=== PATIENT | female | born 1950 | race Caucasian/White ===

== ENCOUNTER 2019-09-06 08:30 | Outpatient (RCR) | payer MEDICARE, SELFPAY | END 2019-09-06 19:30 | disposition home or self-care (01) | LOC: ANHCPREHAB 08:30 | PROVIDERS: PCP Nurse Practitioner Family; Visit Provider Internal Medicine Critical Care Medicine | DX: J44.9 Chronic obstructive pulmonary disease, unspecified (principal) | CPT/HCPCS: 97150; G0424 ==

== ENCOUNTER 2019-10-23 11:11 | Outpatient (CLI) | payer MEDICARE, SELFPAY ==
--- NOTE | 2019-10-24 16:01 | WPDSIXMINUTE ---
Six Minute Walk Six Minute Walk: DOS: 10/23/2019 REQUESTING: Dr Ibarra REASON FOR TESTING : post pulmonary rehab SIX MINUTE WALK The patient wore a mask due to pandemic which caused her to feel more short of breath than normal. The test was performed according to ATS guidelines. The initial saturation was 98% on room air, heart rate 97. The patient walked for 6 minutes stopping twice approximately 30 seconds total completing a distance of 600 ft, 183 meters. Saturation was 93% at the long term berenice. Ending saturation was 95%, pulse was 112. IMPRESSION: No melany hypoxemia. No supplemental oxygen required with exertion. Patient was more short of breath compared to baseline, likely due to wearing a face mask. Distance walked is less than expected for her age. Navya Ibarra MD
== END 2019-10-23 11:12 | disposition home or self-care (01) ==
PROVIDERS: PCP Family Medicine; Visit Provider Internal Medicine Critical Care Medicine
DX: J44.9 Chronic obstructive pulmonary disease, unspecified (principal); R06.02 Shortness of breath
CPT/HCPCS: 94618

== ENCOUNTER 2020-01-05 08:06 | Outpatient (CLI) | payer MEDICARE, SELFPAY ==
[2020-01-05 08:39] LABS: Blood Urea Nitrogen 28 mg/dL (7-17); Carbon Dioxide 27 mmol/L (22-30); Chloride 103 mmol/L (98-107); Estimated Glomerular Filt Rate 49; Glucose 116 mg/dL (65-105); Potassium 4.1 mmol/L (3.4-5.0); Sodium 140 mmol/L (137-145)
== END 2020-01-05 08:07 | disposition home or self-care (01) ==
LOC: ANHLAB 08:07
PROVIDERS: PCP Family Medicine; Visit Provider Internal Medicine Cardiovascular Disease
DX: R60.0 Localized edema (principal)
CPT/HCPCS: 36415; 80048; 83735

== ENCOUNTER 2020-02-08 07:28 | Outpatient (CLI) | payer MEDICARE, SELFPAY ==
[2020-02-08 07:53] LABS: Basophils Percent Auto 0.6 % (0.2-1.2); Eosinophils Absolute Auto 0.2 K/mm3 (0-0.3); Eosinophils Percent Auto 2.2 % (0-4.4); Hematocrit 36.2 % (37.0-47.0); Hemoglobin 11.2 g/dL (12.0-15.0); Immature Granulocyte Absolute 0.02 K/mm3 (0.00-0.031); Immature Granulocyte Percent A 0.3 % (0-0.5); Lymphocytes Absolute Auto 1.44 K/mm3 (0.9-3.2); Lymphocytes Percent Auto 21.5 % (18.3-44.2); Mean Corpuscular HGB Conc 30.9 g/dl (32-36); Mean Corpuscular Hemoglobin 25.6 pg (26-34); Mean Corpuscular Volume 82.6 fl (80-100); Mean Platelet Volume 8.9 fl (7.4-10.4); Monocytes Absolute Auto 0.9 K/mm3 (0.1-0.6); Monocytes Percent Auto 12.7 % (2.6-8.5); Neutrophils Absolute Auto 4.2 K/mm3 (1.3-6.7); Neutrophils Percent Auto 62.7 % (45.5-73.1); Platelet Count Result 417 k/mm3 (150-375); Red Blood Count 4.38 M/mm3 (4.2-5.4); Red Cell Distribution Width 13.9 % (11.5-14.5); White Blood Count 6.7 K/mm3 (4.5-10.0)
[2020-02-08 08:20] LABS: Alanine Aminotransferase 17 U/L (4-35); Albumin Level 4.4 g/dL (3.5-5.1); Alkaline Phosphatase 61 U/L (38-126); Anion Gap 7 mmol/L (8-16); Aspartate Amino Transferase 23 U/L (14-36); Bilirubin,Total 0.3 mg/dL (0.2-1.3); Blood Urea Nitrogen 21 mg/dL (7-17); Calcium 9.6 mg/dL (8.4-10.2); Carbon Dioxide 29 mmol/L (22-30); Chloride 104 mmol/L (98-107); Cholesterol 164 mg/dL (0-200); Estimated Glomerular Filt Rate > 60; Glucose 95 mg/dL (65-105); HDL Direct 48 mg/dL; Sodium 140 mmol/L (137-145); Triglycerides 122 mg/dL (<150)
[2020-02-08 08:31] LABS: LDL Cholesterol Direct 101 mg/dL
== END 2020-02-08 07:29 | disposition home or self-care (01) ==
PROVIDERS: Visit Provider Nurse Practitioner
DX: N91.2 Amenorrhea, unspecified (principal); E55.9 Vitamin D deficiency, unspecified; E78.5 Hyperlipidemia, unspecified; R79.89 Other specified abnormal findings of blood chemistry
CPT/HCPCS: 36415; 80053; 80061; 82306; 85025

== ENCOUNTER 2020-02-29 09:07 | Outpatient (CLI) | payer MEDICARE, SELFPAY ==
--- NOTE | ~2020-02-29 | MM_ITS ---
EXAMINATION: MM screening abhishek BI w yoel HISTORY: Screening TECHNIQUE: Craniocaudal and mediolateral oblique 3-D tomosynthesis images were obtained and synthetic 2-D images were generated. CAD analysis was submitted and interpreted. COMPARISON: No prior mammogram is available for comparison at this institution. BREAST PARENCHYMAL COMPOSITION: The breasts are almost entirely fatty. FINDINGS: There is no evidence of suspicious mass, calcification, or architectural distortion to sugg est malignancy in either breast. There has been no suspicious interval change. IMPRESSION: 1. No mammographic evidence of malignancy. 2. Recommend routine screening mammography in one year. BI-RADS Category 1: Negative Reviewed, dictated and finalized at location A.
== END 2020-02-29 09:08 | disposition home or self-care (01) ==
LOC: ANHIMG 09:09
PROVIDERS: Visit Provider Nurse Practitioner
DX: Z12.31 Encounter for screening mammogram for malignant neoplasm of breast (principal)
CPT/HCPCS: 77063; 77067

== ENCOUNTER 2020-07-22 08:00 | Outpatient (CLI) | payer MEDICARE, SELFPAY ==
[2020-07-22 08:13] LABS: Basophils Percent Auto 0.5 % (0.2-1.2); Eosinophils Absolute Auto 0.1 K/mm3 (0-0.3); Eosinophils Percent Auto 1.8 % (0-4.4); Hematocrit 36.5 % (37.0-47.0); Hemoglobin 11.3 g/dL (12.0-15.0); Immature Granulocyte Absolute 0.02 K/mm3 (0.00-0.031); Immature Granulocyte Percent A 0.3 % (0-0.5); Lymphocytes Absolute Auto 1.55 K/mm3 (0.9-3.2); Lymphocytes Percent Auto 19.6 % (18.3-44.2); Mean Corpuscular Hemoglobin 25.8 pg (26-34); Mean Corpuscular Volume 83.3 fl (80-100); Mean Platelet Volume 8.4 fl (7.4-10.4); Monocytes Absolute Auto 0.8 K/mm3 (0.1-0.6); Monocytes Percent Auto 10.4 % (2.6-8.5); Neutrophils Absolute Auto 5.3 K/mm3 (1.3-6.7); Neutrophils Percent Auto 67.4 % (45.5-73.1); Platelet Count Result 433 k/mm3 (150-375); Red Blood Count 4.38 M/mm3 (4.2-5.4); Red Cell Distribution Width 14.7 % (11.5-14.5); White Blood Count 7.9 K/mm3 (4.5-10.0)
[2020-07-22 08:26] LABS: Alanine Aminotransferase 20 U/L (4-35); Albumin Level 4.3 g/dL (3.5-5.1); Alkaline Phosphatase 54 U/L (38-126); Anion Gap 5 mmol/L (8-16); Aspartate Amino Transferase 29 U/L (14-36); Bilirubin,Total 0.4 mg/dL (0.2-1.3); Blood Urea Nitrogen 22 mg/dL (7-17); Calcium 9.8 mg/dL (8.4-10.2); Carbon Dioxide 31 mmol/L (22-30); Chloride 105 mmol/L (98-107); Cholesterol 169 mg/dL (0-200); Estimated Glomerular Filt Rate > 60; Glucose 107 mg/dL (65-105); HDL Direct 49 mg/dL; Potassium 4.1 mmol/L (3.4-5.0); Sodium 141 mmol/L (137-145); Triglycerides 156 mg/dL (<150)
[2020-07-22 08:37] LABS: LDL Cholesterol Direct 95 mg/dL
[2020-07-22 09:06] LABS: Vitamin D 25 Hydroxy 68.6 ng/mL
== END 2020-07-22 08:01 | disposition home or self-care (01) ==
PROVIDERS: PCP Family Medicine; Visit Provider Nurse Practitioner
DX: I10 Essential (primary) hypertension (principal); E78.5 Hyperlipidemia, unspecified; E55.9 Vitamin D deficiency, unspecified
CPT/HCPCS: 36415; 80053; 80061; 82306; 85025

== ENCOUNTER 2020-08-01 07:32 | Outpatient (CLI) | payer MEDICARE, SELFPAY ==
--- NOTE | 2020-08-01 07:48 | ECHO_ITS ---
Patient Info Name: Fidelina Wells Age: 70 years : 1950 Gender: Female Ht: 66 in Wt: 175 lbs BSA: 1.94 m2 HR: 77 bpm BP: 143 / 84 mmHg Technical Quality: Good Exam Date: 08/01/2020 8:06 AM Exam Location: [facility] Patient Status: Outpatient Admit Date: 08/01/2020 Staff Ordering Physician: Navya Ibarra MD Band Booker: Arturo Guillory RDCS, RT Attending Provider: Navya Ibarra MD Referring Physician: Fred ROACH; Exam Type: CA echo doppler color flow Study Info Indications R06.02 - Shortness of breath Complete two-dimensional, color flow and Doppler transthoracic echocardiogram is performed. Strain analysis performed. Summary 1. Complete two-dimensional, color flow and Doppler transthoracic echocardiogram is performed. 2. Left ventricular chamber dimension is normal. 3. Left ventricular systolic function is normal, estimated at 60-65%. 4. The left ventricular diastolic function is grade I diastolic dysfunction. 5. E/e' 13 is mildly elevated. 6. Global longitudinal strain is normal at -17.2%. 7. Lipomatous interatrial septum. 8. The mitral valve has mildly calcified annulus. 9. Normal inferior vena cava with >50% collapse upon inspiration consistent with elevated right atrial pressure, 10 mmHg. Left Ventricle E/e' 13 is mildly elevated. Global longitudinal strain is normal at -17.2%. Left ventricular chamber dimension is normal. Left ventricular systolic function is normal, estimated at 60-65%. The left ventricular diastolic function is grade I diastolic dysfunction. Right Ventricle Right ventricular chamber dimension is normal. Right ventricular systolic function is normal. Left Atria Left atrial chamber dimension is normal. Right Atria Right atrial chamber dimension is normal. Atrial Septum Lipomatous interatrial septum. Aortic Valve The aortic valve is trileaflet. There is no aortic valve stenosis. There is no aortic valve regurgitation. Pulmonic Valve There is no pulmonic regurgitation. Mitral Valve The mitral valve has mildly calcified annulus. There is no mitral valve stenosis. There is no mitral valve regurgitation. Tricuspid Valve There is no tricuspid valve regurgitation. Pericardium/Pleural There is no pericardial effusion. Inferior Vena Cava Normal inferior vena cava with >50% collapse upon inspiration consistent with elevated right atrial pressure, 10 mmHg. Aorta The aortic root size at the sinus of Valsalva is normal. Left Ventricular Outflow Tract Name Value Normal LVOT 2D LVOT Diameter 2.1 cm LVOT Doppler LVOT Peak Gradient 4 mmHg LVOT Mean Gradient 2 mmHg LVOT VTI 19 cm LVOT VTI/AV VTI Ratio 0.5 LVOT Stroke Volume 67 ml LVOT CO 5.2 l/min LVOT CI 2.7 l/min/m2 Mitral Valve Name Value Ashely
== END 2020-08-01 07:33 | disposition home or self-care (01) ==
PROVIDERS: PCP Family Medicine; Visit Provider Internal Medicine Critical Care Medicine
DX: R06.02 Shortness of breath (principal)
CPT/HCPCS: 93306

== ENCOUNTER 2020-09-16 07:43 | Outpatient (CLI) | payer MEDICARE, SELFPAY ==
--- NOTE | ~2020-09-16 | DEXA_ITS ---
Bone Density Report Name: Fidelina Wells Age: 70 Sex: Female Ethnicity: White Date of : 1950 Indication: osteopenia; height loss; asthma or emphysema; hysterectomy; Referring Provider: Minnie Ramirez Study: Bone densitometry was performed. Exam Date: September 16, 2020 Accession number: [id number] Bone Density: Region BMD T-score Z-score Classification AP Spine (L1-L4) 0.939 -1.0 1.2 Normal Femoral Neck (Right) 0.683 -1.5 0.4 Osteopenia Total Hip (Right) 0.783 -1.3 0.3 Osteopenia World Health Organization criteria for BMD impression classify patients as: Normal (T-score at or above -1.0), Osteopenia (T-score between -1.0 and -2.5), or Osteoporosis (T-score at or below -2.5). 10-year Fracture Risk(1): Major Osteoporotic Fracture 10% Hip Fracture 1.6% Reported Risk Factors: [place] (), Neck BMD=0.683, BMI=28.3 (1) FRAX(R) Version 3.08. Fracture probability calculated for an untreated patient. Fracture probability may be lower if the patient has received treatment. Previous Exams: Region Exam Age BMD T-score BMD Change BMD Change Date g/cm2 vs Baseline vs Previous AP Spine(L1-L4) 09/16/2020 70 0.939 -1.0 0.010(1.0%) 0.010(1.0%) 08/03/2018 68 0.930 -1.1 Total Hip(Right) 09/16/2020 70 0.783 -1.3 -0.034(-4.2%)* -0.034(-4.2%)* 08/03/2018 68 0.817 -1.0 *Denotes significance at 95% confidence level, LSC for AP Spine = 0.022 g/cm2, LSC for Total Hip = 0.027 g/cm2 Clinical Information Provided by Patient: Has used the following medications: Vitamin D Has the following medical conditions: Asthma or Emphysema, Hysterectomy Patient maximum height was 67 Menopause Age: 47 Drinks caffeinated beverages Onset of menses at age 11 Number of children 1 Impression: The patient has low bone mass, based on the Right Femoral Neck T-score. The patient has an estimated ten-year risk of hip fracture of 1.6% and an estimated ten-year risk of major fracture of 10%, based on the WHO FRAX algorithm. The BMD for the Total Hip(Right) decreased, changing by -4.2% since the last DXA exam. Discussion: BONE DENSITY IS LOW AT ONE OR MORE SKELETAL SITES. This patient's lowest T-score is low at one or more skeletal sites. It meets the World Health Organization's (WHO) criteria for ?low bone mass? (T-score between -1.0 and -2.5). The patient's 10-year risk of fracture as calculated by FRAX is less than the threshold where pharmacological therapy is recommended by the National Osteoporosis Foundation (NOF)
== END 2020-09-16 07:44 | disposition home or self-care (01) ==
LOC: ANHIMG 07:46
PROVIDERS: PCP Family Medicine; Visit Provider Nurse Practitioner
DX: Z78.0 Asymptomatic menopausal state (principal); M85.89 Other specified disorders of bone density and structure, multiple sites
CPT/HCPCS: 77080

== ENCOUNTER 2021-01-24 07:09 | Outpatient (CLI) | payer MEDICARE, SELFPAY ==
[2021-01-24 07:25] LABS: Basophils Absolute Auto 0.1 K/mm3 (0.0-0.1); Basophils Percent Auto 0.7 % (0.2-1.2); Eosinophils Absolute Auto 0.2 K/mm3 (0-0.3); Eosinophils Percent Auto 1.8 % (0-4.4); Hematocrit 35.9 % (37.0-47.0); Hemoglobin 10.3 g/dL (12.0-15.0); Immature Granulocyte Absolute 0.04 K/mm3 (0.00-0.031); Immature Granulocyte Percent A 0.5 % (0-0.5); Lymphocytes Absolute Auto 1.67 K/mm3 (0.9-3.2); Mean Corpuscular HGB Conc 28.7 g/dl (32-36); Mean Corpuscular Hemoglobin 23.2 pg (26-34); Mean Corpuscular Volume 80.9 fl (80-100); Mean Platelet Volume 8.7 fl (7.4-10.4); Monocytes Percent Auto 11.9 % (2.6-8.5); Neutrophils Absolute Auto 5.4 K/mm3 (1.3-6.7); Neutrophils Percent Auto 65.1 % (45.5-73.1); Platelet Count Result 457 k/mm3 (150-375); Red Blood Count 4.44 M/mm3 (4.2-5.4); Red Cell Distribution Width 14.9 % (11.5-14.5); White Blood Count 8.3 K/mm3 (4.5-10.0)
[2021-01-24 07:48] LABS: Alanine Aminotransferase 19 U/L (4-35); Albumin Level 4.4 g/dL (3.5-5.1); Alkaline Phosphatase 60 U/L (38-126); Anion Gap 7 mmol/L (8-16); Aspartate Amino Transferase 31 U/L (14-36); Bilirubin,Total 0.4 mg/dL (0.2-1.3); Blood Urea Nitrogen 17 mg/dL (7-17); Calcium 10.1 mg/dL (8.4-10.2); Carbon Dioxide 29 mmol/L (22-30); Chloride 106 mmol/L (98-107); Cholesterol 183 mg/dL (0-200); Estimated Glomerular Filt Rate > 60; Glucose 107 mg/dL (65-110); HDL Direct 53 mg/dL; Sodium 142 mmol/L (137-145); Triglycerides 173 mg/dL (<150)
[2021-01-24 07:59] LABS: LDL Cholesterol Direct 84 mg/dL
[2021-01-24 08:43] LABS: Hypochromasia 2+ (NORMAL); Platelet Estimate Adequate (Adequate)
== END 2021-01-24 07:10 | disposition home or self-care (01) ==
LOC: ANHLAB 07:11
PROVIDERS: PCP Family Medicine; Visit Provider Nurse Practitioner
DX: I10 Essential (primary) hypertension (principal); E78.5 Hyperlipidemia, unspecified
CPT/HCPCS: 36415; 80053; 80061; 85025

== ENCOUNTER 2021-09-02 07:13 | Outpatient (CLI) | payer MEDICARE, SELFPAY ==
[2021-09-02 07:31] LABS: Basophils Percent Auto 0.4 % (0.2-1.2); Eosinophils Absolute Auto 0.1 K/mm3 (0-0.3); Eosinophils Percent Auto 1.3 % (0-4.4); Hematocrit 33.4 % (37.0-47.0); Hemoglobin 9.3 g/dL (12.0-15.0); Immature Granulocyte Absolute 0.03 K/mm3 (0.00-0.031); Immature Granulocyte Percent A 0.4 % (0-0.5); Lymphocytes Absolute Auto 1.53 K/mm3 (0.9-3.2); Lymphocytes Percent Auto 18.4 % (18.3-44.2); Mean Corpuscular HGB Conc 27.8 g/dl (32-36); Mean Corpuscular Hemoglobin 22.3 pg (26-34); Mean Corpuscular Volume 80.1 fl (80-100); Mean Platelet Volume 8.3 fl (7.4-10.4); Monocytes Percent Auto 11.4 % (2.6-8.5); Neutrophils Absolute Auto 5.7 K/mm3 (1.3-6.7); Neutrophils Percent Auto 68.1 % (45.5-73.1); Platelet Count Result 468 k/mm3 (150-375); Red Blood Count 4.17 M/mm3 (4.2-5.4); Red Cell Distribution Width 15.3 % (11.5-14.5); White Blood Count 8.3 K/mm3 (4.5-10.0)
[2021-09-02 07:53] LABS: LDL Cholesterol Direct 100 mg/dL
[2021-09-02 08:14] LABS: Platelet Estimate Adequate (Adequate)
[2021-09-02 08:15] LABS: Anisocytosis 1+ (NORMAL); Hypochromasia 2+ (NORMAL); Stomatocytes 1+ (NORMAL)
[2021-09-02 09:44] LABS: Alanine Aminotransferase 17 U/L (4-35); Albumin Level 4.4 g/dL (3.5-5.1); Alkaline Phosphatase 68 U/L (38-126); Anion Gap 6 mmol/L (8-16); Aspartate Amino Transferase 42 U/L (14-36); Bilirubin,Total 0.3 mg/dL (0.2-1.3); Blood Urea Nitrogen 18 mg/dL (7-17); Calcium 9.8 mg/dL (8.4-10.2); Carbon Dioxide 32 mmol/L (22-30); Chloride 104 mmol/L (98-107); Cholesterol 190 mg/dL (0-200); Estimated Glomerular Filt Rate > 60; Glucose 115 mg/dL (65-110); HDL Direct 46 mg/dL; Potassium 4.1 mmol/L (3.4-5.0); Sodium 142 mmol/L (137-145); Triglycerides 183 mg/dL (<150)
[2021-09-03 17:00] LABS: Hemoglobin A1C 5.2 % (<5.7)
[2021-09-03 17:36] LABS: Folic Acid > 20.0 ng/mL (2.76->20); Vitamin B12 > 1000.0 pg/mL (239-931)
== END 2021-09-02 07:14 | disposition home or self-care (01) ==
PROVIDERS: PCP Family Medicine; Visit Provider Nurse Practitioner
DX: E78.5 Hyperlipidemia, unspecified (principal); I10 Essential (primary) hypertension; D50.0 Iron deficiency anemia secondary to blood loss (chronic); R73.9 Hyperglycemia, unspecified
CPT/HCPCS: 36415; 80053; 80061; 82607; 82746; 83036; 85025

== ENCOUNTER 2021-10-06 07:09 | Outpatient (CLI) | payer MEDICARE, SELFPAY ==
[2021-10-06 07:58] LABS: Basophils Absolute Auto 0.1 K/mm3 (0.0-0.1); Basophils Percent Auto 0.7 % (0.2-1.2); Eosinophils Absolute Auto 0.2 K/mm3 (0-0.3); Eosinophils Percent Auto 2.5 % (0-4.4); Hematocrit 38.1 % (37.0-47.0); Hemoglobin 10.7 g/dL (12.0-15.0); Immature Granulocyte Absolute 0.03 K/mm3 (0.00-0.031); Immature Granulocyte Percent A 0.4 % (0-0.5); Lymphocytes Percent Auto 18.3 % (18.3-44.2); Mean Corpuscular HGB Conc 28.1 g/dl (32-36); Mean Corpuscular Hemoglobin 22.8 pg (26-34); Mean Corpuscular Volume 81.1 fl (80-100); Mean Platelet Volume 8.9 fl (7.4-10.4); Monocytes Absolute Auto 0.9 K/mm3 (0.1-0.6); Monocytes Percent Auto 11.9 % (2.6-8.5); Neutrophils Absolute Auto 4.7 K/mm3 (1.3-6.7); Neutrophils Percent Auto 66.2 % (45.5-73.1); Platelet Count Result 367 k/mm3 (150-375); Red Cell Distribution Width 17.3 % (11.5-14.5); White Blood Count 7.1 K/mm3 (4.5-10.0)
[2021-10-06 08:13] LABS: Iron 36 ug/dL (37-170)
[2021-10-06 08:41] LABS: Percent Iron Saturation 9 % (20-50)
== END 2021-10-06 07:10 | disposition home or self-care (01) ==
PROVIDERS: PCP Family Medicine; Visit Provider Family Medicine
DX: D64.9 Anemia, unspecified (principal)
CPT/HCPCS: 36415; 82728; 83540; 83550; 85025

== ENCOUNTER 2021-10-09 07:19 | Outpatient (CLI) | payer MEDICARE, SELFPAY ==
[2021-10-09 08:40] LABS: IFOB Positive Control Positive; Immunochemical Fecal Occult Bl Positive (N)
== END 2021-10-09 07:20 | disposition home or self-care (01) ==
PROVIDERS: PCP Family Medicine; Visit Provider Family Medicine
DX: D64.9 Anemia, unspecified (principal)
CPT/HCPCS: 82274

== ENCOUNTER 2021-11-28 01:53 | Day surgery (SDC) | payer MEDICARE, SELFPAY ==
[2021-11-11 13:55] VITALS: BMI 28.8
[2021-11-28 10:05] VITALS: BP 170/84; PULSE 84; RESP 18; TEMP 36.7; O2SAT 94; BMI 29.2
[2021-11-28] MEDS: LACTATED RINGERS 1,000 ML 150 ML IV CONT (10:24)
--- NOTE | 2021-11-28 10:46 | WPDANESEPPF ---
Anes - Initial Pre Proc Eval Procedure: Operation Date: 11/28/21 11:00 Proposed Procedures p Esophagogastroduodenoscopy & Colonoscopy - Michael Voss MD Date/Time: 11/28/21 10:46 Surgeon: Michael Voss MD Pre Op Diagnosis: positive hemoccult, DUNG Patient Data Age: 71 Gender: F Height: 1.68 m Weight: 82 kg Last Vital Signs Temp 98.0 F 11/28/21 10:05 Pulse 84 11/28/21 10:05 Resp 18 11/28/21 10:05 BP 170/84 H 11/28/21 10:05 Pulse Ox 94 11/28/21 10:05 O2 Del Method Room Air 11/28/21 10:05 Allergies Allergy/AdvReac Type Severity Reaction Status Date / Time lisinopril Allergy Unknown Unknown Verified 11/28/21 10:04 nabumetone Allergy Unknown Unknown Verified 11/28/21 10:04 Sulfa (Sulfonamide Allergy Unknown Unknown Verified 11/28/21 10:04 Antibiotics) Home Medications Medication Instructions Recorded Confirmed Type cholecalciferol (vitamin D3) 50 1 unit PO DAILY 06/15/19 11/28/21 History mcg (2,000 unit) tablet multivit with 1 tablet PO DAILY 06/15/19 11/28/21 History kcqcbodx-pmtq-UF-lutein 8 mg iron-400 mcg-300 mcg tablet (Centrum Silver Women) comp.stocking,knee,long,medium #7 ea 06/28/20 11/10/21 Rx fluticasone fur. 100 mcg-umeclid 1 inh inhalation Q24H #60 ea 01/28/21 11/28/21 Rx 62.5 mcg-vilant 25 mcg inhalat.powder (Trelegy Ellipta) albuterol sulfate 90 mcg/actuation See Rx Instructions .Route 08/11/21 11/28/21 Rx aerosol inhaler .COMPLEX #18 grams amlodipine 10 mg tablet See Rx Instructions .Route 08/11/21 11/28/21 Rx .COMPLEX #90 tabs pravastatin 10 mg tablet See Rx Instructions .Route 08/11/21 11/28/21 Rx .COMPLEX #90 tabs spironolactone 25 mg tablet See Rx Instructions .Route 08/11/21 11/28/21 Rx .COMPLEX #30 tabs ferrous sulfate 324 mg (65 mg 324 mg PO BID #180 tabs 10/06/21 11/28/21 Rx iron) tablet,delayed release Patient hx anesthesia problems: none Family hx anesthesia problems: none Results Review: All pre-operative results and documents have been reviewed as part of the pre-operative evaluation. PENDING SALE TO [facility] Past Medical History Medical History (Updated 11/10/21 @ 09:48 by DAVID Fernandez) COPD (chronic obstructive pulmonary disease) Essential (primary) hypertension Family history of colon cancer in mother Gastric ulcer History of tobacco abuse Hyperlipidemia Iron deficiency anemia Lower extremity edema Overweight (BMI 25.0-29.9) Vitamin D deficiency Surgical History Surgical History History of cataract extraction 2015, 2018 History of hysterectomy (~1984) History of left hip replacement (~2007) History of lumbar discectomy (~1989) History of tonsillectomy (~1955) Family History Family History Father Family history of cardiovascular disease Patient's father is , Onset Age: 54 Cancer of spine Mother Family history of cardiovascular disease Family history of osteoporosis Patient's mother is , Onset Age: 91 Breast cancer Colon cancer CHF (congestive heart failure) Sibling Cerebrovascular accident Social History Social History Smoking packs per day: 0.5 Smoking cigarettes per day: 10.0 Years smoked: 2 Smoking pack-years: 1.00 Smoking status: Never smoker Tobacco type: cigarettes Second hand tobacco smoke exposure: Yes Smoking end date: 06/21/70 Alcohol intake: current Alcohol use details: Occasional small glass of wine Substance use: never Substance use type: does not use Living arrangements: with family Gender identity (if verbalized by the patient): Female Spiritual care concerns: No Anes - Eval Final PreProcedure Day of Procedure 11/28/21 10:46 Patient weight: obese Heart: regular rate and rhythm Lungs: clear to auscultation
--- NOTE | 2021-11-28 10:48 | PM.HPGS ---
History of Present Illness History of Present Illness Consent: Risks, benefits, and alternatives have been discussed and questions answered. Patient agrees to proceed with procedure. Chief complaint: positive hemoccult, DUNG Narrative: Fidelina Wells is a 71 year old female wiht recurrent DUNG, 2019 egd showed ulcerative gastritis but she is not longer using ppi, colonoscopy only diverticulosis. Repeat FOBT positive but she denies overt gib. Review of Systems Constitutional: Constitutional: Denies headache(s) and Denies weakness Eyes: Eyes: Denies blurry vision ENT: Reports Normal hearing present, Denies headache(s) and Denies neck pain Cardiovascular: Cardiovascular: Denies chest pain and Denies dyspnea Respiratory: Respiratory: Denies dyspnea Gastrointestinal: Gastrointestinal: Reports no additional gastrointestinal complaints Genitourinary: Genitourinary: Denies dysuria Musculoskeletal: Musculoskeletal: Denies neck pain Integumentary/Breasts: Skin/Breast: Denies dry skin Neurologic: Reports Normal hearing present, Denies headache(s) and Denies weakness Psychiatric: Psychiatric: Denies anxiety Endocrine: Endocrine: Denies change in body appearance Hematologic/Lymphatic: Hematologic/Lymphatic: Denies easy bleeding Allergic/Immunologic: Allergic/Immunologic: Denies urticaria [facility] Past Medical History Medical History (Updated 11/10/21 @ 09:48 by DAVID Fernandez) COPD (chronic obstructive pulmonary disease) Essential (primary) hypertension Family history of colon cancer in mother Gastric ulcer History of tobacco abuse Hyperlipidemia Iron deficiency anemia Lower extremity edema Overweight (BMI 25.0-29.9) Vitamin D deficiency Surgical History Surgical History History of cataract extraction 2015, 2018 History of hysterectomy (~1984) History of left hip replacement (~2007) History of lumbar discectomy (~1989) History of tonsillectomy (~1955) Family History Family History Father Family history of cardiovascular disease Patient's father is , Onset Age: 54 Cancer of spine Mother Family history of cardiovascular disease Family history of osteoporosis Patient's mother is , Onset Age: 91 Breast cancer Colon cancer CHF (congestive heart failure) Sibling Cerebrovascular accident Social History Social History Smoking packs per day: 0.5 Smoking cigarettes per day: 10.0 Years smoked: 2 Smoking pack-years: 1.00 Smoking status: Never smoker Tobacco type: cigarettes Second hand tobacco smoke exposure: Yes Smoking end date: 06/21/70 Alcohol intake: current Alcohol use details: Occasional small glass of wine Substance use: never Substance use type: does not use Living arrangements: with family Gender identity (if verbalized by the patient): Female Spiritual care concerns: No Meds Home Medications and Allergies Home Medications Medication Instructions Recorded Confirmed Type cholecalciferol (vitamin D3) 50 1 unit PO DAILY 06/15/19 11/28/21 History mcg (2,000 unit) tablet multivit with 1 tablet PO DAILY 06/15/19 11/28/21 History xzxobtyc-efum-LX-lutein 8 mg iron-400 mcg-300 mcg tablet (Centrum Silver Women) comp.stocking,knee,long,medium #7 ea 06/28/20 11/10/21 Rx fluticasone fur. 100 mcg-umeclid 1 inh inhalation Q24H #60 ea 01/28/21 11/28/21 Rx 62.5 mcg-vilant 25 mcg inhalat.powder (Trelegy Ellipta) albuterol sulfate 90 mcg/actuation See Rx Instructions .Route 08/11/21 11/28/21 Rx aerosol inhaler .COMPLEX #18 grams amlodipine 10 mg tablet See Rx Instructions .Route 08/11/21 11/28/21 Rx .COMPLEX #90 tabs pravastatin 10 mg tablet See Rx Instructions .Route 08/11/21 11/28/21 Rx .COMPLEX #90 tabs spironolactone 25 mg tablet See Rx
[2021-11-28] MEDS: BENZOCAINE (*SP) 60 ML SPRAY CAN (HURRICAINE) 1 SPRAY MUCOUS MEM (10:57)
[2021-11-28 11:19] VITALS: BP 135/79; PULSE 79; RESP 21; O2SAT 100
[2021-11-28 11:29] VITALS: BP 135/79; PULSE 82; RESP 17; O2SAT 98
--- NOTE | 2021-11-28 11:32 | SUR.OPER ---
EGD start 1055 end 1059, Colonoscopy start 1104 end 1115.
[2021-11-28 11:39] VITALS: BP 141/89; PULSE 79; RESP 18; O2SAT 99
== END 2021-11-28 11:54 | disposition home or self-care (01) ==
PROVIDERS: PCP Family Medicine; Visit Provider Internal Medicine Gastroenterology
PROC: 0DJ08ZZ Inspection of Upper Intestinal Tract, Via Natural or Artificial Opening Endoscopic (ICD-10-PCS; CPT 43235; principal; 2021-11-28 11:00)
DX: D50.9 Iron deficiency anemia, unspecified (principal); D12.2 Benign neoplasm of ascending colon; D12.0 Benign neoplasm of cecum; Z80.0 Family history of malignant neoplasm of digestive organs; R19.5 Other fecal abnormalities; K57.30 Diverticulosis of large intestine without perforation or abscess without bleeding; K64.8 Other hemorrhoids; K21.00 Gastro-esophageal reflux disease with esophagitis, without bleeding; K44.9 Diaphragmatic hernia without obstruction or gangrene; K29.50 Unspecified chronic gastritis without bleeding; E55.9 Vitamin D deficiency, unspecified; E78.5 Hyperlipidemia, unspecified; I10 Essential (primary) hypertension; J44.9 Chronic obstructive pulmonary disease, unspecified; Z79.51 Long term (current) use of inhaled steroids
CPT/HCPCS: 45385; 45380; 43239; 88305; J2704; J7120

== ENCOUNTER 2022-01-15 08:07 | Outpatient (CLI) | payer MEDICARE, SELFPAY ==
[2022-01-15 19:41] LABS: Alanine Aminotransferase 21 U/L (6-35); Albumin Level 4.7 g/dL (3.5-5.1); Alkaline Phosphatase 89 U/L (38-126); Anion Gap 10 mmol/L (8-16); Aspartate Amino Transferase 34 U/L (14-36); Bilirubin,Total 0.6 mg/dL (0.2-1.3); Blood Urea Nitrogen 21 mg/dL (7-17); Calcium 10.5 mg/dL (8.4-10.2); Carbon Dioxide 32 mmol/L (22-30); Chloride 103 mmol/L (98-107); Cholesterol 192 mg/dL (0-200); Estimated Glomerular Filt Rate > 60; Glucose 99 mg/dL (65-110); HDL Direct 40 mg/dL; Sodium 145 mmol/L (137-145); Triglycerides 254 mg/dL (<150)
[2022-01-15 19:51] LABS: Basophils Absolute Auto 0.1 K/mm3 (0.0-0.1); Basophils Percent Auto 0.6 % (0.2-1.2); Eosinophils Absolute Auto 0.2 K/mm3 (0-0.3); Eosinophils Percent Auto 1.9 % (0-4.4); Hematocrit 45.1 % (37.0-47.0); Hemoglobin 14.4 g/dL (12.0-15.0); Immature Granulocyte Absolute 0.03 K/mm3 (0.00-0.031); Immature Granulocyte Percent A 0.4 % (0-0.5); Lymphocytes Absolute Auto 1.79 K/mm3 (0.9-3.2); Lymphocytes Percent Auto 22.6 % (18.3-44.2); Mean Corpuscular HGB Conc 31.9 g/dl (32-36); Mean Corpuscular Hemoglobin 29.2 pg (26-34); Mean Corpuscular Volume 91.5 fl (80-100); Mean Platelet Volume 9.9 fl (7.4-10.4); Monocytes Percent Auto 12.3 % (2.6-8.5); Neutrophils Absolute Auto 4.9 K/mm3 (1.3-6.7); Neutrophils Percent Auto 62.2 % (45.5-73.1); Platelet Count Result 377 k/mm3 (150-375); Red Blood Count 4.93 M/mm3 (4.2-5.4); Red Cell Distribution Width 14.2 % (11.5-14.5); White Blood Count 7.9 K/mm3 (4.5-10.0)
[2022-01-15 19:52] LABS: LDL Cholesterol Direct 107 mg/dL
[2022-01-15 21:56] LABS: Iron 108 ug/dL (37-170)
[2022-01-15 22:10] LABS: Vitamin D 25 Hydroxy 75.4 ng/mL
[2022-01-15 22:11] LABS: Percent Iron Saturation 30 % (20-50)
== END 2022-01-15 08:08 | disposition home or self-care (01) ==
LOC: ANHGOSHLAB 08:11
PROVIDERS: PCP Family Medicine; Visit Provider Nurse Practitioner
DX: D64.9 Anemia, unspecified (principal); I10 Essential (primary) hypertension; R53.83 Other fatigue; E78.5 Hyperlipidemia, unspecified; E55.9 Vitamin D deficiency, unspecified
CPT/HCPCS: 36415; 80053; 80061; 82306; 82728; 83540; 83550; 84443; 85025

== ENCOUNTER 2022-08-14 08:15 | Outpatient (CLI) | payer MEDICARE, SELFPAY ==
[2022-08-14 18:35] LABS: Basophils Percent Auto 0.4 % (0.2-1.2); Eosinophils Absolute Auto 0.1 K/mm3 (0-0.3); Eosinophils Percent Auto 1.6 % (0-4.4); Hematocrit 43.1 % (37.0-47.0); Hemoglobin 14.1 g/dL (12.0-15.0); Immature Granulocyte Absolute 0.03 K/mm3 (0.00-0.031); Immature Granulocyte Percent A 0.4 % (0-0.5); Lymphocytes Absolute Auto 1.58 K/mm3 (0.9-3.2); Lymphocytes Percent Auto 20.5 % (18.3-44.2); Mean Corpuscular HGB Conc 32.7 g/dl (32-36); Mean Corpuscular Hemoglobin 31.2 pg (26-34); Mean Corpuscular Volume 95.4 fl (80-100); Mean Platelet Volume 9.9 fl (7.4-10.4); Monocytes Absolute Auto 0.8 K/mm3 (0.1-0.6); Monocytes Percent Auto 10.8 % (2.6-8.5); Neutrophils Absolute Auto 5.1 K/mm3 (1.3-6.7); Neutrophils Percent Auto 66.3 % (45.5-73.1); Platelet Count Result 364 k/mm3 (150-375); Red Blood Count 4.52 M/mm3 (4.2-5.4); White Blood Count 7.7 K/mm3 (4.5-10.0)
[2022-08-14 18:54] LABS: Alanine Aminotransferase 23 U/L (6-35); Albumin Level 4.6 g/dL (3.5-5.1); Alkaline Phosphatase 74 U/L (38-126); Anion Gap 7 mmol/L (8-16); Aspartate Amino Transferase 30 U/L (14-36); Bilirubin,Total 0.6 mg/dL (0.2-1.3); Blood Urea Nitrogen 18 mg/dL (7-17); Calcium 9.4 mg/dL (8.4-10.2); Carbon Dioxide 29 mmol/L (22-30); Chloride 108 mmol/L (98-107); Cholesterol 164 mg/dL (0-200); Estimated Glomerular Filt Rate > 60; Glucose 89 mg/dL (65-110); HDL Direct 34 mg/dL; Potassium 4.3 mmol/L (3.4-5.0); Sodium 144 mmol/L (137-145); Triglycerides 290 mg/dL (<150)
[2022-08-14 19:05] LABS: LDL Cholesterol Direct 81 mg/dL
[2022-08-14 19:48] LABS: Iron 95 ug/dL (37-170); Percent Iron Saturation 30 % (20-50); Vitamin D 25 Hydroxy 72.2 ng/mL
== END 2022-08-14 08:16 | disposition home or self-care (01) ==
LOC: ANHGOSHLAB 08:17
PROVIDERS: PCP Family Medicine; Visit Provider Nurse Practitioner
DX: E55.9 Vitamin D deficiency, unspecified (principal); D64.9 Anemia, unspecified; I10 Essential (primary) hypertension; E78.5 Hyperlipidemia, unspecified
CPT/HCPCS: 36415; 80053; 80061; 82306; 82728; 83540; 83550; 85025

== ENCOUNTER 2022-10-28 09:31 | Outpatient (CLI) | payer MEDICARE, SELFPAY ==
--- NOTE | ~2022-10-28 | DEXA_ITS ---
Bone Density Report Name: ASAEL JOHNSTON Age: 72 Sex: Female Ethnicity: White Date of : 1950 Indication: osteopenia; height loss; asthma or emphysema; hysterectomy; postmenopausal Referring Provider: MAME FORD Study: Bone densitometry was performed. Exam Date: October 28, 2022 Accession number: [id number] Bone Density: Region BMD T-score Z-score Classification AP Spine(L1-L4) 0.922 -1.1 1.2 Osteopenia Femoral Neck (Right) 0.682 -1.5 0.5 Osteopenia Total Hip (Right) 0.772 -1.4 0.3 Osteopenia World Health Organization criteria for BMD impression classify patients as: Normal (T-score at or above -1.0), Osteopenia (T-score between -1.0 and -2.5), or Osteoporosis (T-score at or below -2.5). 10-year Fracture Risk(1): Major Osteoporotic Fracture 10% Hip Fracture 1.8% Reported Risk Factors: [place] (), Neck BMD=0.682, BMI=31.8 (1) FRAX(R) Version 3.08. Fracture probability calculated for an untreated patient. Fracture probability may be lower if the patient has received treatment. Previous Exams: Region Exam Age BMD T-score BMD Change BMD Change Date g/cm2 vs Baseline vs Previous AP Spine (L1-L4) 10/28/2022 72 0.922 -1.1 -0.008 (-0.8%) -0.017 (-1.8%) 09/16/2020 70 0.939 -1.0 0.010 (1.0%) 0.010 (1.0%) 08/03/2018 68 0.930 -1.1 Total Hip(Right) 10/28/2022 72 0.772 -1.4 -0.046 (-5.6%) -0.012 (-1.5%) 09/16/2020 70 0.783 -1.3 -0.034 (-4.2%) -0.034 (-4.2%) 08/03/2018 68 0.817 -1.0 *Denotes significance at 95% confidence level, LSC for AP Spine = 0.022 g/cm2, LSC for Total Hip = 0.027 g/cm2 Clinical Information Provided by Patient: Has used the following medications: Vitamin D Has the following medical conditions: Asthma or Emphysema, Hysterectomy Patient maximum height was 67 Menopause Age: 34 No regular weight bearing exercise Does not regularly consume dairy products Onset of menses at age 12 Number of children 1 Impression: The patient has low bone mass, based on the Right Femoral Neck T-score. The patient has an estimated ten-year risk of hip fracture of 1.8% and an estimated ten-year risk of major fracture of 10%, based on the WHO FRAX algorithm. No significant bone loss was observed. Discussion: BONE DENSITY IS LOW AT ONE OR MORE SKELETAL SITES. This patient's lowest T-score is low at one or more skeletal sites. It meets the World Health Organization's (WHO) criteria for ?low bone mass? (T-score between -1.0 and -2.5). The patient's 10-year risk of fracture
--- NOTE | ~2022-10-28 | MM_ITS ---
EXAMINATION: MM screening abhishek BI w yoel HISTORY: Screening mammogram, family history of breast cancer in her mother. TECHNIQUE: Craniocaudal and mediolateral oblique 3-D tomosynthesis images were obtained and synthetic 2-D images were generated. CAD analysis was submitted and interpreted. COMPARISON: 02/29/2020 BREAST PARENCHYMAL COMPOSITION: The breasts are almost entirely fatty. FINDINGS: No suspicious mass, calcification, or architectural distortion are identified in either abdiaziz ast to suggest malignancy. There has been no suspicious interval change. IMPRESSION: 1. No mammographic evidence of malignancy. 2. Recommend routine screening mammography in one year. BI-RADS Category 1: Negative Reviewed, dictated and finalized at location A.
== END 2022-10-28 09:32 | disposition home or self-care (01) ==
LOC: ANHIMG 09:32
PROVIDERS: PCP Family Medicine; Visit Provider Nurse Practitioner
DX: Z12.31 Encounter for screening mammogram for malignant neoplasm of breast (principal); Z78.0 Asymptomatic menopausal state; M85.88 Other specified disorders of bone density and structure, other site; M85.851 Other specified disorders of bone density and structure, right thigh
CPT/HCPCS: 77063; 77067; 77080

== ENCOUNTER 2023-02-03 08:16 | Outpatient (CLI) | payer MEDICARE, SELFPAY ==
[2023-02-03 19:28] LABS: Basophils Absolute Auto 0.1 K/mm3 (0.0-0.1); Basophils Percent Auto 0.8 % (0.2-1.2); Eosinophils Absolute Auto 0.2 K/mm3 (0-0.3); Eosinophils Percent Auto 3.1 % (0-4.4); Hematocrit 43.2 % (37.0-47.0); Hemoglobin 13.8 g/dL (12.0-15.0); Immature Granulocyte Absolute 0.03 K/mm3 (0.00-0.031); Immature Granulocyte Percent A 0.4 % (0-0.5); Lymphocytes Absolute Auto 1.48 K/mm3 (0.9-3.2); Lymphocytes Percent Auto 19.1 % (18.3-44.2); Mean Corpuscular HGB Conc 31.9 g/dl (32-36); Mean Corpuscular Hemoglobin 31.4 pg (26-34); Mean Corpuscular Volume 98.4 fl (80-100); Mean Platelet Volume 9.7 fl (7.4-10.4); Monocytes Absolute Auto 0.9 K/mm3 (0.1-0.6); Monocytes Percent Auto 11.9 % (2.6-8.5); Neutrophils Percent Auto 64.7 % (45.5-73.1); Platelet Count Result 332 k/mm3 (150-375); Red Blood Count 4.39 M/mm3 (4.2-5.4); Red Cell Distribution Width 12.1 % (11.5-14.5); White Blood Count 7.7 K/mm3 (4.5-10.0)
[2023-02-03 20:31] LABS: Vitamin D 25 Hydroxy 55.1 ng/mL
[2023-02-03 20:51] LABS: Alanine Aminotransferase 28 U/L (6-35); Albumin Level 4.4 g/dL (3.5-5.1); Alkaline Phosphatase 71 U/L (38-126); Anion Gap 5 mmol/L (8-16); Aspartate Amino Transferase 33 U/L (14-36); Bilirubin,Total 0.5 mg/dL (0.2-1.3); Blood Urea Nitrogen 17 mg/dL (7-17); Calcium 10.1 mg/dL (8.4-10.2); Carbon Dioxide 31 mmol/L (22-30); Chloride 105 mmol/L (98-107); Cholesterol 188 mg/dL (0-200); Estimated Glomerular Filt Rate > 60; Glucose 92 mg/dL (65-110); HDL Direct 40 mg/dL; Potassium 5.2 mmol/L (3.4-5.0); Sodium 141 mmol/L (137-145); Triglycerides 252 mg/dL (<150)
[2023-02-03 21:02] LABS: LDL Cholesterol Direct 107 mg/dL
== END 2023-02-03 08:17 | disposition home or self-care (01) ==
LOC: ANHGOSHLAB 08:18
PROVIDERS: PCP Family Medicine; Visit Provider Nurse Practitioner Family
DX: I10 Essential (primary) hypertension (principal); Z13.21 Encounter for screening for nutritional disorder; Z13.220 Encounter for screening for lipoid disorders; Z13.29 Encounter for screening for other suspected endocrine disorder
CPT/HCPCS: 36415; 80053; 80061; 82306; 84443; 85025

== ENCOUNTER 2023-02-18 08:28 | Outpatient (CLI) | payer MEDICARE, SELFPAY ==
[2023-02-18 11:23] LABS: Potassium 3.3 mmol/L (3.4-5.0)
== END 2023-02-18 08:29 | disposition home or self-care (01) ==
PROVIDERS: PCP Family Medicine; Visit Provider Nurse Practitioner Family
DX: E87.5 Hyperkalemia (principal)
CPT/HCPCS: 36415; 84132

== ENCOUNTER 2023-03-04 08:47 | Outpatient (CLI) | payer MEDICARE, SELFPAY ==
[2023-03-04 11:45] LABS: Potassium 4.1 mmol/L (3.4-5.0)
== END 2023-03-04 08:48 | disposition home or self-care (01) ==
PROVIDERS: PCP Family Medicine; Visit Provider Nurse Practitioner Family
DX: E87.6 Hypokalemia (principal)
CPT/HCPCS: 36415; 84132

== ENCOUNTER 2023-08-11 08:13 | Outpatient (CLI) | payer MEDICARE, SELFPAY ==
[2023-08-11 13:35] LABS: Basophils Absolute Auto 0.1 K/mm3 (0.0-0.1); Basophils Percent Auto 0.6 % (0.2-1.2); Eosinophils Absolute Auto 0.2 K/mm3 (0-0.3); Eosinophils Percent Auto 2.5 % (0-4.4); Hematocrit 45.2 % (37.0-47.0); Hemoglobin 14.3 g/dL (12.0-15.0); Immature Granulocyte Absolute 0.04 K/mm3 (0.00-0.031); Immature Granulocyte Percent A 0.5 % (0-0.5); Lymphocytes Absolute Auto 1.77 K/mm3 (0.9-3.2); Lymphocytes Percent Auto 21.1 % (18.3-44.2); Mean Corpuscular HGB Conc 31.6 g/dl (32-36); Mean Corpuscular Hemoglobin 31.3 pg (26-34); Mean Corpuscular Volume 98.9 fl (80-100); Mean Platelet Volume 9.3 fl (7.4-10.4); Monocytes Absolute Auto 0.8 K/mm3 (0.1-0.6); Monocytes Percent Auto 9.7 % (2.6-8.5); Neutrophils Absolute Auto 5.5 K/mm3 (1.3-6.7); Neutrophils Percent Auto 65.6 % (45.5-73.1); Platelet Count Result 364 k/mm3 (150-375); Red Blood Count 4.57 M/mm3 (4.2-5.4); Red Cell Distribution Width 12.6 % (11.5-14.5); White Blood Count 8.4 K/mm3 (4.5-10.0)
[2023-08-11 14:04] LABS: Hemoglobin A1C 6.2 % (<5.7)
[2023-08-11 14:24] LABS: Alanine Aminotransferase 25 U/L (6-35); Albumin Level 4.6 g/dL (3.5-5.1); Alkaline Phosphatase 69 U/L (38-126); Anion Gap 6 mmol/L (8-16); Aspartate Amino Transferase 49 U/L (14-36); Bilirubin,Total 0.7 mg/dL (0.2-1.3); Blood Urea Nitrogen 16 mg/dL (7-17); Calcium 10.1 mg/dL (8.4-10.2); Carbon Dioxide 31 mmol/L (22-30); Chloride 104 mmol/L (98-107); Cholesterol 199 mg/dL (0-200); Estimated Glomerular Filt Rate > 60; Glucose 97 mg/dL (65-110); HDL Direct 40 mg/dL; Potassium 4.6 mmol/L (3.4-5.0); Sodium 141 mmol/L (137-145); Triglycerides 334 mg/dL (<150)
[2023-08-11 14:39] LABS: LDL Cholesterol Direct 109 mg/dL
[2023-08-11 14:41] LABS: Vitamin D 25 Hydroxy 53.9 ng/mL
== END 2023-08-11 08:14 | disposition home or self-care (01) ==
LOC: ANHGOSHLAB 08:14
PROVIDERS: PCP Family Medicine; Visit Provider Nurse Practitioner Family
DX: E55.9 Vitamin D deficiency, unspecified (principal); E78.5 Hyperlipidemia, unspecified; E87.6 Hypokalemia; I10 Essential (primary) hypertension; R73.03 Prediabetes; Z13.29 Encounter for screening for other suspected endocrine disorder
CPT/HCPCS: 36415; 80053; 80061; 82306; 83036; 84443; 85025

== ENCOUNTER 2023-12-17 08:15 | Outpatient (CLI) | payer MEDICARE, SELFPAY ==
[2023-12-17 13:00] LABS: Alanine Aminotransferase 18 U/L (6-35); Albumin Level 4.9 g/dL (3.5-5.1); Alkaline Phosphatase 52 U/L (38-126); Anion Gap 9 mmol/L (4-12); Aspartate Amino Transferase 41 U/L (14-36); Bilirubin,Total 0.7 mg/dL (0.2-1.3); Blood Urea Nitrogen 23 mg/dL (7-17); Calcium 9.9 mg/dL (8.4-10.2); Carbon Dioxide 30 mmol/L (22-30); Chloride 105 mmol/L (98-107); Cholesterol 185 mg/dL (0-200); Estimated Glomerular Filt Rate 54; Glucose 108 mg/dL (65-110); HDL Direct 40 mg/dL; Potassium 4.4 mmol/L (3.4-5.0); Sodium 144 mmol/L (137-145); Triglycerides 259 mg/dL (<150)
[2023-12-17 13:11] LABS: LDL Cholesterol Direct 108 mg/dL
== END 2023-12-17 08:16 | disposition home or self-care (01) ==
LOC: ANHGOSHLAB 08:17
PROVIDERS: PCP Family Medicine; Visit Provider Internal Medicine Cardiovascular Disease
DX: E78.5 Hyperlipidemia, unspecified (principal)
CPT/HCPCS: 36415; 80053; 80061

== ENCOUNTER 2025-01-15 08:11 | Outpatient (CLI) | payer MEDICARE, SELFPAY ==
[2025-01-15 13:09] LABS: Hematocrit 44.7 % (37.0-47.0); Hemoglobin 13.6 g/dL (12.0-15.0); Immature Granulocyte Percent A 0.4 % (0-0.5); Lymphocytes Absolute Auto 1.58 K/mm3 (0.9-3.2); Mean Corpuscular HGB Conc 30.4 g/dl (32-36); Mean Corpuscular Hemoglobin 30.0 pg (26-34); Mean Corpuscular Volume 98.5 fl (80-100); Nucleated Red Blood Cells Absolute Auto 0.000 K/mm3 (0.0-0.012); Nucleated Red Blood Cells Perc 0.0 % (0.0-0.2); Platelet Count Result 399 k/mm3 (150-375); Red Blood Count 4.54 M/mm3 (4.2-5.4); White Blood Count 10.6 K/mm3 (4.5-10.0)
[2025-01-15 14:19] LABS: Thyroid Stimulating Hormone Reflex 2.590 uIU/mL (0.465-4.68)
[2025-01-15 14:23] LABS: Alanine Aminotransferase 22 U/L (6-35); Albumin Level 4.5 g/dL (3.5-5.1); Alkaline Phosphatase 60 U/L (38-126); Anion Gap 12 mmol/L (4-12); Aspartate Amino Transferase 39 U/L (14-36); Bilirubin,Total 0.5 mg/dL (0.2-1.3); Blood Urea Nitrogen 19 mg/dL (7-17); Calcium 10.2 mg/dL (8.4-10.2); Carbon Dioxide 27 mmol/L (22-30); Chloride 105 mmol/L (98-107); Cholesterol 175 mg/dL (0-200); Estimated Glomerular Filt Rate 49; Glucose 132 mg/dL (65-110); HDL Direct 33 mg/dL; Magnesium 2.1 mg/dL (1.6-2.3); Potassium 4.7 mmol/L (3.4-5.0); Sodium 144 mmol/L (137-145); Total Protein 7.7 g/dL (6.3-8.2); Triglycerides 286 mg/dL (<150)
[2025-01-15 15:10] LABS: Hemoglobin A1C 6.9 % (<5.7)
[2025-01-15 15:21] LABS: Vitamin B12 541.0 pg/mL (239-931)
== END 2025-01-15 08:12 | disposition home or self-care (01) ==
LOC: ANHGOSHLAB 08:12
PROVIDERS: PCP Family Medicine; Visit Provider Nurse Practitioner Family
DX: R73.09 Other abnormal glucose (principal); E78.5 Hyperlipidemia, unspecified; E55.9 Vitamin D deficiency, unspecified; I10 Essential (primary) hypertension; D64.9 Anemia, unspecified
CPT/HCPCS: 36415; 80053; 80061; 82306; 82607; 83036; 83735; 84443; 85025

== ENCOUNTER 2025-03-19 10:50 | Outpatient (CLI) | payer MEDICARE, SELFPAY ==
[2025-03-19 13:50] LABS: Hemoglobin A1C 6.8 % (<5.7)
== END 2025-03-19 10:51 | disposition home or self-care (01) ==
LOC: ANHGOSHLAB 10:51
PROVIDERS: PCP Family Medicine; Visit Provider Nurse Practitioner Family
DX: E11.9 Type 2 diabetes mellitus without complications (principal)
CPT/HCPCS: 36415; 83036

== ENCOUNTER 2025-06-12 08:04 | Outpatient (CLI) | payer MEDICARE, SELFPAY ==
[2025-06-12 13:23] LABS: Hematocrit 44.8 % (37.0-47.0); Hemoglobin 14.1 g/dL (12.0-15.0); Immature Granulocyte Percent A 0.3 % (0-0.5); Lymphocytes Absolute Auto 1.49 K/mm3 (0.9-3.2); Mean Corpuscular HGB Conc 31.5 g/dl (32-36); Mean Corpuscular Hemoglobin 30.5 pg (26-34); Mean Corpuscular Volume 97.0 fl (80-100); Nucleated Red Blood Cells Absolute Auto 0.000 K/mm3 (0.0-0.012); Nucleated Red Blood Cells Perc 0.0 % (0.0-0.2); Platelet Count Result 431 k/mm3 (150-375); Red Blood Count 4.62 M/mm3 (4.2-5.4); White Blood Count 6.6 K/mm3 (4.5-10.0)
[2025-06-12 13:36] LABS: Alanine Aminotransferase 21 U/L (6-35); Albumin Level 4.8 g/dL (3.5-5.1); Alkaline Phosphatase 53 U/L (38-126); Anion Gap 10 mmol/L (4-12); Aspartate Amino Transferase 36 U/L (14-36); Bilirubin,Total 0.6 mg/dL (0.2-1.3); Blood Urea Nitrogen 23 mg/dL (7-17); Calcium 10.5 mg/dL (8.4-10.2); Carbon Dioxide 28 mmol/L (22-30); Chloride 107 mmol/L (98-107); Cholesterol 188 mg/dL (0-200); Estimated Glomerular Filt Rate 49; Glucose 118 mg/dL (65-110); HDL Direct 29 mg/dL; Magnesium 1.9 mg/dL (1.6-2.3); Potassium 4.3 mmol/L (3.4-5.0); Sodium 145 mmol/L (137-145); Total Protein 7.9 g/dL (6.3-8.2); Triglycerides 285 mg/dL (<150)
[2025-06-12 13:44] LABS: Hemoglobin A1C 6.0 % (<5.7)
[2025-06-12 14:00] LABS: MALB Creatinine Ratio 93.7 mg/g (0-30)
[2025-06-12 14:04] LABS: Thyroid Stimulating Hormone Reflex 2.050 uIU/mL (0.465-4.68)
== END 2025-06-12 08:05 | disposition home or self-care (01) ==
LOC: ANHGOSHLAB 08:04
PROVIDERS: PCP Family Medicine; Visit Provider Nurse Practitioner Family
DX: E78.5 Hyperlipidemia, unspecified (principal); I10 Essential (primary) hypertension; E11.9 Type 2 diabetes mellitus without complications
CPT/HCPCS: 36415; 80053; 80061; 82043; 83036; 83735; 84443; 85025